=== PATIENT | male | born 1955 | race Caucasian/White ===

== ENCOUNTER 2019-04-26 16:52 | Emergency (ER) | payer MEDICARE ==
[2019-04-26 17:09] VITALS: TEMP 98.5
[2019-04-26 21:06] LABS: Albumin 4.2 g/dL (3.5-5.0); Basophils # (A) 0.1 k/uL (0-0.2); Basophils % (A) 1 %; Calcium 9.7 mg/dL (8.4-10.2); Eosinophils # (A) 0.3 k/uL (0-0.7); Eosinophils % (A) 3 %; HCT 41.6 % (39.0-53.0); HGB 13.8 gm/dL (13.0-17.5); Lymphocytes # (A) 2.8 k/uL (1.0-4.8); Lymphocytes % (A) 28 %; MCH 28.3 pg (25.0-35.0); MCHC 33.3 g/dL (31.0-37.0); Magnesium 1.9 mg/dL (1.6-2.3); Mean Platelet Volume 8.4; Monocytes # (A) 0.6 k/uL (0-1.0); Monocytes % (A) 6 %; Neutrophils # (A) 5.9 k/uL (1.3-7.7); Neutrophils % (A) 59 %; Platelet Count 222 k/uL (150-450); Potassium 4.7 mmol/L (3.5-5.1); RDW 14.7 % (11.5-15.5); Total Bilirubin 0.3 mg/dL (0.2-1.3); Total Protein 7.3 g/dL (6.3-8.2); WBC 9.9 k/uL (3.8-10.6)
--- NOTE | 2019-04-26 21:17 | CT ---
EXAMINATION TYPE: CT lumbar spine wo con DATE OF EXAM: 04/26/2019 9:07 PM COMPARISON: None HISTORY: Low back pain for years with history of fusion CT DLP: 1685 mGycm Automated exposure control for dose reduction was used. Unenhanced CT of the lumbar spine was performed. Bone and soft tissue window settings are submitted as well as coronal and sagittal reconstructions. Lumbar vertebra have normal alignment. There is narrowing of disc spaces at L4-5 L5-S1. There is post erior fusion surgery from L4 to S1. There is no compression fracture. I see no focal bone destruction . There is no lumbar paraspinal mass. There is severe spinal stenosis at L3-4 due to facet arthropath y and posterior disc herniation. There is laminectomy defect in the lower lumbar spine. Sacroiliac esther ints are intact. IMPRESSION: Previous surgery. Multilevel spondylotic changes. Severe bony spinal stenosis at L3-4.
--- NOTE | 2019-04-26 21:18 | CT ---
EXAMINATION TYPE: CT brain wo con DATE OF EXAM: 04/26/2019 COMPARISON: HISTORY: Headache, weakness and hypertension. CT DLP: 1131.4 mGycm Automated exposure control for dose reduction was used. FINDINGS: Ventricles and sulci appear normal. There is no mass effect nor midline shift. There is no sign of in tracranial hemorrhage. The calvarium is intact. IMPRESSION: NEGATIVE CT SCAN OF THE BRAIN.
[2019-04-26] MEDS ORDERED: amLODIPine 5 MG TAB PO STA (22:02)
--- NOTE | 2019-04-26 22:02 | ED ---
General Adult HPI - General Chief complaint: Recheck/Abnormal Lab/Rx Stated complaint: hbp Time Seen by Provider: 04/26/19 19:26 Source: patient Mode of arrival: ambulatory Limitations: no limitations - History of Present Illness Initial comments: Patient is a 64-year-old male who presents to the emergency department with complaint of elevated blood pressure. The patient reports that he has had left leg pain for the past week. He does have a history of a lumbar cage. He went into [facility] earlier today to have evaluation of the left hip pain. They did take his vitals and found him to be extremely hypertensive. They discharged him home without any pain medications. They did do an x-ray of the patient's left hip which demonstrated no acute abnormalities. The patient went [facility] today and took his blood pressure once again. It continued to remain high. He states that he has a previous history of hypertension and was on amlodipine. S tatjovanni he went off of it because his blood pressures did improve after weight loss. He reports to having a slight headache at this time. Denies any visual changes. No unilateral numbness or weakness. This is not the worse headache of his life. He denies any neck pain or stiffness. No fevers or chills. He denies any chest pain or shortness of breath. Denies any changes in his bowel or bladder habits. No saddle anesthesia or bowel/bladder incontinence. There are no other alleviating, precipitating or modifying factors - Related Data Home Medications Medication Instructions Recorded Confirmed Ascorbic Acid [Vitamin C] 1,000 mg PO DAILY 04/26/19 04/26/19 Ginseng 100 mg PO DAILY 04/26/19 04/26/19 Glucosam/Aren-Msm1/C/Golden/Bosw 1 tab PO DAILY 04/26/19 04/26/19 [Glucosamine-Chondroitin Tablet] Magnesium(Unknown Dose) 1 tab PO DAILY 04/26/19 04/26/19 Propranolol HCl [Propranolol HCl 160 mg PO DAILY 04/26/19 04/26/19 ER] Turmeric Root Extract [Turmeric] 500 mg PO DAILY 04/26/19 04/26/19 Previous Rx's Medication Instructions Recorded Hydrocodone/Acetaminophen [Milton 1 tab PO Q6HR PRN #12 tab 04/26/19 5-325] amLODIPine [Norvasc] 5 mg PO DAILY #30 tab 04/26/19 Allergies Allergy/AdvReac Type Severity Reaction Status Date / Time No Known Allergies Allergy Verified 04/26/19 19:51 Review of Systems ROS Statement: Those systems with pertinent positive or pertinent negative responses have been documented in the HPI. ROS Other: All systems not noted in ROS Statement are negative. Past Medical History Past Medical History: Hypertension Additional Past Medical History / Comment(s): benign tremors History of Any Multi-Drug Resistant Organisms: None Reported Past Surgical History: Back Surgery, Orthopedic Surgery Additional Past Surgical History / Comment(s): b hip replacements, cage in back Past Psychological History: No Psychological Hx Reported Smoking Status: Current every day smoker Past Alcohol Use History: None Reported Past Drug Use History: None Reported General Exam Limitations: no limitations General appearance: alert, in no apparent distress Head exam: Present: atraumatic, normocephalic, normal inspection Eye exam: Present: normal appearance, PERRL, EOMI. Absent: scleral icterus, conjunctival injection, periorbital swelling ENT exam: Present: normal exam, mucous membranes moist Neck exam: Present: normal inspection. Absent: tenderness, meningismus, lymph adenopathy Respiratory exam: Present: normal lung sounds bilaterally. Absent: respiratory distress, wheezes, rales, rhonchi, stridor Cardiovascular Exam: Present: regular rate, normal rhythm, normal heart sounds. Absent: systolic murmur, diastolic murmur, rubs, gallop, clicks GI/Abdominal exam: Present: soft, normal bowel sounds. Absent: distended, tenderness, guarding, rebound, rigid Extremities exam: Present: normal inspection, full ROM, normal capillary refill, other (5/5 muscle strength in the b/l lower extremities to include hip flexors, knee extensors, ankle and great toe dorsiflexors and foot plantarflexors. 2+ DP and PT pulses. Intact 2 point discrimintation and soft touch). Absent: tenderness, pedal edema, joint swelling, calf tenderness Back exam: Present: normal inspection, CVA tenderness (L), muscle spasm, paraspinal tenderness Neurological exam: Present: alert, oriented X3, CN II-XII intact Psychiatric exam: Present: normal affect, normal mood Skin exam: Present: warm, dry, intact, normal color. Absent: rash Course Vital Signs 04/26/19 04/26/19 04/26/19 17:04 19:40 19:43 Temperature 98.5 F Pulse Rate 69 64 Respiratory 18 18 Rate Blood Pressure 207/113 209/107 O2 Sat by Pulse 98 96 Oximetry 04/26/19 04/26/19 04/26/19 20:45 21:21 22:02 Temperature Pulse Rate 58 L 60 61 Respiratory 19 17 18 Rate Blood Pressure 198/109 191/109 188/102 O2 Sat by Pulse 98 99 97 Oximetry EKG Findings - EKG Comments: EKG Findings:: EKG demonstrates a sinus bradycardia with a ventricular rate of 59. IA interval 144. QRS 96. QTC of 435. There is a Q wave in lead 3. No acute ST segment elevations or depressions Medical Decision Making - Medical Decision Making Upon arrival the patient is placed into room 10. He is hooked up to continuous pulse ox and cardiac monitoring. A 12-lead EKG is performed which demonstrates normal sinus rhythm. I did recommend laboratory studies. I also recommended a CT the patient's head because of his reported headache and a CT of the patient's lumbar spine due to his reported back pain. Patient did agree to this. Upon return of the results I did discuss with the patient. I did inform him that he does have an elevated creatinine at this time. The patient will be given a prescription for Milton. Side effect profile discussed the patient. He is to take this as needed for pain control. He is to stop taking Motrin as he states he has been taking a significant amount recently. He is to follow-up with his primary care doctor and have his kidney function retested. I will start the patient on amlodipine as he has taken his previous in the past. He states he did take 5 mg. I did provide the patient with a prescription for this medication. He is provided with 1 tablet prior to discharge. He needs to follow up with his primary care doctor to 4 days. Return to the emergency room for any new or worsening symptoms. Patient was in agreement with the treatment plan he was discharged home in stable condition - Differential Diagnosis accelerated htn, acute cephalgia, a/c back pain - Lab Data Result diagrams: 04/26/19 20:47 04/26/19 20:47 Lab Results 04/26/19 04/26/19 Range/Units 20:47 20:47 WBC 9.9 (3.8-10.6) k/uL RBC 4.90 (4.30-5.90) m/uL Hgb 13.8 (13.0-17.5) gm/dL Hct 41.6 (39.0-53.0) % MCV 85.0 (80.0-100.0) fL MCH 28.3 (25.0-35.0) pg MCHC 33.3 (31.0-37.0) g/dL RDW 14.7 (11.5-15.5) % Plt Count 222 (150-450) k/uL Neutrophils % 59 % Lymphocytes % 28 % Monocytes % 6 % Eosinophils % 3 % Basophils % 1 % Neutrophils # 5.9 (1.3-7.7) k/uL Lymphocytes # 2.8 (1.0-4.8) k/uL Monocytes # 0.6 (0-1.0) k/uL Eosinophils # 0.3 (0-0.7) k/uL Basophils # 0.1 (0-0.2) k/uL Sodium 145 (137-145) mmol/L Potassium 4.7 (3.5-5.1) mmol/L Chloride 111 H (98-107) mmol/L Carbon Dioxide 27 (22-30) mmol/L Anion Gap 7 mmol/L BUN 22 H (9-20) mg/dL Creatinine 1.55 H (0.66-1.25) mg/dL Est GFR (CKD-EPI)AfAm 55 (>60 ml/min/1.73 sqM) Est GFR (CKD-EPI)NonAf 47 (>60 ml/min/1.73 sqM) Glucose 112 H (74-99) mg/dL Calcium 9.7 (8.4-10.2) mg/dL Magnesium 1.9 (1.6-2.3) mg/dL Total Bilirubin 0.3 (0.2-1.3) mg/dL AST 34 (17-59) U/L ALT 48 (21-72) U/L Alkaline Phosphatase 76 (38-126) U/L Total Protein 7.3 (6.3-8.2) g/dL Albumin 4.2 (3.5-5.0) g/dL Disposition Clinical Impression: Back pain, Hypertension, MYRIAM (acute kidney injury) Disposition: HOME SELF-CARE Condition: Stable Instructions (If sedation given, give patient instructions): Hypertension (ED) Additional Instructions: Please follow-up with your primary care doctor in 2-4 days. They must reeva luate the high blood pressure medication you were placed on. Please stop it if you have any ill side effects. Return to the emergency room for any new or worsening symptoms Prescriptions: Hydrocodone/Acetaminophen [Milton 5-325] 1 tab PO Q6HR PRN #12 tab PRN Reason: Pain amLODIPine [Norvasc] 5 mg PO DAILY #30 tab Is patient prescribed a controlled substance at d/c from ED?: Yes When asked, does pt state using other controlled substances?: No If prescribed controlled substance>3 days was MAPS reviewed?: Prescribed <3 Days If opioid is for acute pain is fill amount 7 days or less?: Yes If Rx opioid, was Start Talking consent form obtained?: Yes Referrals: Nonstaff,Physician [Primary Care Provider] - 1-2 days Time of Disposition: 21:57
[2019-04-26 22:03] VITALS: BP 188/102; PULSE 61; RESP 18
== END 2019-04-26 22:14 | disposition home or self-care (01) ==
LOC: EC 16:52
DX: I10 Essential (primary) hypertension (principal); N17.9 Acute kidney failure, unspecified; M54.9 Dorsalgia, unspecified; R51 Headache; R79.89 Other specified abnormal findings of blood chemistry; F17.200 Nicotine dependence, unspecified, uncomplicated; Z96.643 Presence of artificial hip joint, bilateral; Z79.899 Other long term (current) drug therapy
CPT/HCPCS: 36415; 70450; 72131; 80053; 83735; 85025; 93005; 99284

== ENCOUNTER → 2019-06-04 | Outpatient (CLI) | payer MEDICARE ==
[2019-06-04 14:21] LABS: African American GFR (CKD) 105.7 (60.0-200.0); Albumin 4.6 g/dL (3.80-4.90); Albumin/Globulin Ratio 1.92 (1.60-3.17); Anion Gap 10.3 mmol/L (4.00-12.00); BUN/Creat Ratio 17.78 Ratio (12.00-20.00); Calcium 9.5 mg/dL (8.7-10.3); Carbon Dioxide 21.7 mmol/L (21.6-31.8); Chol/HDL Ratio 6.41; Globulin 2.4 g/dL (1.6-3.3); LDL Cholesterol,Calculated 182.6 mg/dL (0.0-131.0); Potassium 4.7 mmol/L (3.5-5.5); Total Bilirubin 0.4 mg/dL (0.3-1.2); VLDL Calculation 55.4 mg/dL (5.00-40.00)
== END | disposition home or self-care (01) ==
LOC: LABWHC1 07:51
PROVIDERS: ATTEND Family Medicine
DX: I10 Essential (primary) hypertension (principal); N28.9 Disorder of kidney and ureter, unspecified; Z12.5 Encounter for screening for malignant neoplasm of prostate
CPT/HCPCS: 80061; 80053; 84443; 82306; 36415; G0103